=== PATIENT | female | born 1950 | race Caucasian/White ===

== ENCOUNTER → 2018-07-29 11:38 | Outpatient (CLI) | payer OTHER, SELFPAY ==
--- NOTE | 2018-07-29 | DI.MRI.S_ITS ---
PROCEDURE: MR KNEE LT WO CON INDICATIONS: Pain in left knee TECHNIQUE: Noncontrast sagittal PD fast spin echo and T2 fast spin echo with fat saturation, sagittal 3-D FLASH with fat saturation; coronal T1 spin echo and PD fast spin echo with fat saturation, and axial PD fast spin echo with fat saturation through the knee. COMPARISON: None. FINDINGS: Image quality: Excellent. Menisci: Linear oblique high T2 signal intensity traverses the posterior horn medial meniscus, demonstrating inferior articular surface extension, indicating oblique tearing. Linear oblique high T2 signal intensity traverses the posterior horn, body, and anterior horn lateral meniscus, demonstrating inferior articular surface extension, indicating oblique tearing. Cruciate ligaments: The anterior and posterior cruciate ligaments appear intact. Medial structures: The medial collateral ligament appears intact. Visualized portions of the pes anserinus tendons appear normal. No abnormal bursal fluid. Lateral structures: The lateral collateral ligament, long and short heads of the biceps femoris tendon appear intact. The popliteus tendon appears normal. Iliotibial band appears normal. Anterior structures: The quadriceps and patellar tendons appear intact. Patellar alignment is normal. No femoral trochlear dysplasia or ventral trochlear prominence. No edema in the infrapatellar fat pad. Bones and cartilage: No bone marrow contusions or fractures. Mild tricompartmental periarticular osteophyte formation. Moderate diffuse articular cartilage loss overlies the weightbearing aspects of the medial femoral condyle and medial tibial plateau. The moderate articular cartilage loss overlies the patellar apex and medial patellar facet superiorly. Joint space: There is a moderate knee joint effusion. No Lee's cyst. Normal appearing synovial plicae are incidentally noted. IMPRESSION: 1. Medial and lateral meniscal tearing. 2. Medial and patellofemoral compartment articular cartilage loss. 3. Knee joint fusion. Dictated by: Vito Oakley M.D. on 07/29/2018 at 13:51 Approved by: Vito Oakley M.D. on 07/29/2018 at 13:55
== END ==
PROVIDERS: PCP Internal Medicine; Visit Provider Physician Assistant
DX: M25.562 Pain in left knee (principal); S83.242A Other tear of medial meniscus, current injury, left knee, initial encounter; S83.282A Other tear of lateral meniscus, current injury, left knee, initial encounter; M25.462 Effusion, left knee
CPT/HCPCS: 73721

== ENCOUNTER → 2020-08-30 15:17 | Outpatient (CLI) | payer MEDICARE, OTHER, SELFPAY ==
--- NOTE | 2020-09-20 10:59 | PM.CARDMON.1 ---
[employer]oured Car [employer] Report Referral & Results Date Patient Seen: 08/30/20 Requesting provider: Alejandra Alvarenga Indication: Atrial fibrillation Duration of monitoring (days): 7 Diary information: there were no patient events to review Data: minimum heart rate identified was 54 beats per minute at 03:58 on 09/03/2020 Maximum sinus heart rate was 129 beats per minute at 15:55 on 09/04/2020 Maximum overall heart rate was 184 beats per minute at 15:34 on 09/02/2020 during a 5 beat run of SVT Less than 1% of identified beats were ventricular or supraventricular ectopic in origin, which would classify them as rare. There were 9 runs of SVT the longest lasting 15.8 seconds, the fastest being the 5 beat run noted above Impression: 7 day cardiac rehab nurse showing very rare very brief runs of SVT and no other significant dysrhythmias. No episodes of atrial fibrillation identified on this study
== END ==
PROVIDERS: PCP Internal Medicine; Referring Provider Family Medicine; Visit Provider Family Medicine
DX: I48.91 Unspecified atrial fibrillation (principal); R01.1 Cardiac murmur, unspecified
CPT/HCPCS: 93242; 93244

== ENCOUNTER → 2020-09-18 14:03 | Outpatient (CLI) | payer MEDICARE, OTHER, SELFPAY ==
--- NOTE | 2020-09-18 | DI.ECHO.S_ITS ---
[place]---------+ [facility] +---------+ : : [address] : [place] : : : : [id number] : : : : Phone: [phone]---------+ Echocardiogram Report + + :Name: RENO SWARTZ Study Date: 09/18/2020 Height: 65 in : :[facility] ReadingLocation: Weight: 130 lb : : Gender: Female BSA: 1.6 m2 : :: 1950 Age: 70 yrs BP: 130/78 mmHg: :Reason For Study: CARDIAC MURMUR : :Ordering Physician: CHE, : :NATALYA Performed By: Teresa Murillo : :Referring: NATALYA BOLTON : + + Interpretation Summary The left ventricle is normal in size and wall thickness. Left ventricular systolic function appears normal without focal wall motion abnormalities. The ejection fraction is estimated to be 60-65%. Diastolic parameters suggest a pseudonormalization pattern, consistent with probable elevated filling pressures. The right ventricle is normal in size and function. The right ventricular systolic pressure is estimated to be at least 33 mmHg based on an estimated right atrial pressure of 3 mm Hg. The left atrium is severely dilated. The right atrium is mildly dilated. There is mild mitral regurgitation. There is no other significant valvular heart disease. The aortic root is normal size. Procedure: A two-dimensional transthoracic echocardiogram with color flow and Doppler was performed. The study quality was technically adequate. There is no prior echocardiogram noted for this patient. The patient was in sinus rhythm with heart rates between 68-76 bpm during the exam. Left Ventricle: The left ventricle is normal in size and wall thickness. Left ventricular systolic function appears normal without focal wall motion abnormalities. The ejection fraction is estimated to be 60-65%. Diastolic parameters suggest a pseudonormalization pattern, consistent with probable elevated filling pressures. Right Ventricle: The right ventricle is normal in size and function. Atria: The left atrium is severely dilated. The right atrium is mildly dilated. There is no Doppler evidence for an interatrial shunt. Mitral Valve: The mitral valve leaflets appear mildly thickened, but open well. There is mild mitral annular calcification. There is mild mitral regurgitation. Aortic Valve: The aortic valve is trileaflet. The aortic valve opens well. There is no aortic valve stenosis. No aortic regurgitation is present. Tricuspid Valve: The tricuspid valve is normal in structure and function. There is trace tricuspid regurgitation. The right ventricular systolic pressure is estimated to be at least 33 mmHg based on an estimated right atrial pressure of 3 mm Hg. Pulmonic Valve: The pulmonic valve leaflets are thin and pliable; valve motion is normal. There is no pulmonic valvular regurgitation. There is no other significant valvular heart disease. Great Vessels: The aortic root is normal size. The IVC is of normal diameter and collapses greater than 50% with a sniff. This suggests a low right atrial pressure of 3 mm Hg. Pericardium/ Pleura There is no pericardial effusion. There is no pleural effusion. MMode/2D Measurements & Calculations LVIDd: 5.0 cm LVOT diam: 2.0 cm LVIDs: 3.4 cm Ao root diam: 2.7 cm FS: 32.1 % asc Aorta Diam: 3.1 cm EPSS: 0.69 cm Ao Arch Diam (Prox Trans): 3.2 cm IVSd: 0.81 cm LVPWd: 0.76 cm LV allen. diameter/BSA (cm/m^2): 3.0 LV sys. diameter/BSA (cm/m^2): 2.0 LA A2 area: 26.3 cm2 RA long axis: 5.3 cm LA A4 area: 23.4 cm2 RA area: 18.3 cm2 LA length (vol): 5.4 cm RA vol: 53.2 ml LA vol: 97.0 ml RA : 32.3 ml/m2 LA vol index: 58.9 ml/m2 IVC diam: 1.9 cm RVD1 (basal): 3.6 cm TAPSE: 1.9 cm Doppler Measurements & Calculations Ao V2 max: 174.0 cm/sec LVOT Max Quinten: 139.7 cm/sec Ao V2 mean: 113.3 cm/sec LV V1 max P.8 mmHg Ao max P.1 mmHg LV V1 VTI: 29.0 cm Ao mean P.9 mmHg DEA(I,D): 2.5 cm2 Ao V2 VTI: 35.4 cm DEA(V,D): 2.5 cm2 sev ratio: 0.82 DEA indexed to BSA (cm^2/m^2): 1.5 MV E max quinten: 117.1 cm/sec TR max quinten: 273.3 cm/sec MV A max quinten: 112.6 cm/sec TR max P.9 mmHg MV E/A: 1.0 PA V2 max: 120.1 cm/sec Med Peak E' Quinten: 5.7 cm/sec PA V2 mean: 83.4 cm/sec E/E' med: 20.7 PA mean P.1 mmHg Lat Peak E' Quinten: 5.3 cm/sec PA pr(Accel): 3.6 mmHg E/E' lat: 22.1 E/e' average: 21.4 MV dec time: 0.40 sec MVA(VTI): 2.6 cm2 MV V2 mean: 88.1 cm/sec SV(LVOT): 89.4 ml MV mean P.5 mmHg MV V2 VTI: 34.9 cm Reading Physician:06:32 PM
== END ==
PROVIDERS: PCP Family Medicine; Referring Provider Family Medicine; Visit Provider Family Medicine
DX: R01.1 Cardiac murmur, unspecified (principal); I34.0 Nonrheumatic mitral (valve) insufficiency; M85.852 Other specified disorders of bone density and structure, left thigh; Z78.0 Asymptomatic menopausal state; Z82.62 Family history of osteoporosis
CPT/HCPCS: 77080; 93306

== ENCOUNTER → 2021-08-08 08:04 | Outpatient (CLI) | payer MEDICARE, OTHER, SELFPAY ==
--- NOTE | 2021-08-08 | DI.RAD.S_ITS ---
PROCEDURE: FL UPPER GI W AIR INDICATIONS: Dysphagia, unspecified COMPARISON: None. FINDINGS: KUB: Preprocedural gin pole operator film demonstrates a normal bowel gas pattern. No suspicious abdominal calcifications. Visualized solid organ contours appear normal. Bony structures appear unremarkable. Esophagus: Esophageal mucosa is normal on air-contrast views. On single-contrast views, there is essentially normal esophageal peristalsis. However, there are a few spontaneous episodes of tertiary contractions resulting in delayed and retrograde flow of ingested oral contrast . No strictures, extrinsic mass effects, or diverticula. Suggestion of small sliding hiatal hernia on the single contrast images. No episodes of elicited gastroesophageal reflux. There is normal transit of a calibrated barium tablet through the esophagus. Stomach: The stomach is normally distensible, with normal rugal fold thickness. No mucosal masses or ulcers. Pylorus and duodenal bulb appear normal in morphology. Duodenal folds are normal in thickness as well. IMPRESSION: 1. Essentially normal esophageal peristalsis with a few spontaneous episodes of tertiary contractions resulting in delayed/retrograde flow of ingested oral contrast. 2. Otherwise, unremarkable double-contrast upper GI evaluation. Dictated by: Raphael Molina M.D. on 08/08/2021 at 17:29 Approved by: Raphael Molina M.D. on 08/08/2021 at 17:32
== END ==
PROVIDERS: PCP Family Medicine; Referring Provider Family Medicine; Visit Provider Family Medicine
DX: R13.10 Dysphagia, unspecified (principal)
CPT/HCPCS: 74246

== ENCOUNTER → 2022-09-14 08:45 | Outpatient (CLI) | payer MEDICARE, OTHER, SELFPAY ==
--- NOTE | 2022-09-14 08:48 | DI.MRI.S_ITS ---
PROCEDURE: MR KNEE RT WO CON INDICATIONS: Unspecified internal derangement of right knee TECHNIQUE: Noncontrast sagittal PD fast spin echo and T2 fast spin echo with fat saturation, sagittal 3-D FLASH with fat saturation; coronal T1 spin echo and PD fast spin echo with fat saturation, and axial PD fast spin echo with fat saturation through the knee. COMPARISON: [facility] Vernon Rosamond, CR, XR KNEE 4+ VIEWS RIGHT, 06/13/2022, 13:49. FINDINGS: Image quality: Excellent. Menisci: Medial meniscal extrusion. There is complex tear of the body and posterior horn of the medial meniscus. Complex tear is also seen in the body of the lateral meniscus extending to the anterior horn. The meniscal root ligaments appear intact. Cruciate ligaments: The anterior and posterior cruciate ligaments appear intact. Medial structures: The medial collateral ligament appears intact. The semimembranosus tendon insertions and meniscocapsular junction appear intact. Visualized portions of the pes anserinus tendons appear normal. No abnormal bursal fluid. Lateral structures: The lateral collateral ligament, long and short heads of the biceps femoris tendon appear intact. The popliteus tendon appears normal. Iliotibial band appears normal. Anterior structures: The quadriceps and patellar tendons appear intact. There is low-grade quadriceps tendinitis and patellar tendinitis. Patellar alignment is normal. No femoral trochlear dysplasia or ventral trochlear prominence. No edema in the infrapatellar fat pad. Bones and cartilage: No bone marrow contusions or fractures. Severe tricompartmental cartilage loss, most pronounced in the patellofemoral joint and medial femorotibial joint. Joint space: There is moderate knee joint fluid. Trace Lee's cyst. Normal appearing synovial plicae are incidentally noted. IMPRESSION: 1. Medial meniscal tear. 2. Lateral meniscal tear. 3. Mild quadriceps tendinitis and patellar tendinitis. 4. Tricompartmental chondromalacia. 5. Moderate knee joint effusion. Dictated by: Basilio Jalloh M.D. on 09/16/2022 at 7:40 Approved by: Basilio Jalloh M.D. on 09/16/2022 at 9:06
== END ==
PROVIDERS: PCP Family Medicine; Referring Provider Orthopaedic Surgery Foot and Ankle Surgery; Visit Provider Orthopaedic Surgery Foot and Ankle Surgery
DX: S83.231A Complex tear of medial meniscus, current injury, right knee, initial encounter (principal); S83.271A Complex tear of lateral meniscus, current injury, right knee, initial encounter; M76.51 Patellar tendinitis, right knee; M94.261 Chondromalacia, right knee; M23.91 Unspecified internal derangement of right knee; M25.461 Effusion, right knee
CPT/HCPCS: 73721

== ENCOUNTER → 2022-09-30 10:16 | Outpatient (CLI) | payer MEDICARE, OTHER, SELFPAY ==
--- NOTE | 2022-09-30 10:31 | DI.DEXA.S_ITS ---
Bone Density Report Name: RENO SWARTZ Age: 72 Sex: Female Ethnicity: White Date of : 1950 Indication: postmenopausal; screening for osteoporosis; Referring Provider: NATALYA BOLTON MD Study: Bone densitometry was performed. Exam Date: September 30, 2022 Accession number: [id number] Bone Density: Region BMD T-score Z-score Classification AP Spine(L1-L4) 1.008 -0.4 1.9 Normal Femoral Neck (Left) 0.724 -1.1 0.8 Osteopenia Total Hip (Left) 0.874 -0.6 1.1 Normal Femoral Neck (Right) 0.689 -1.4 0.5 Osteopenia Total Hip (Right) 0.838 -0.9 0.8 Normal Total Hip Mean 0.856 -0.8 1.0 Normal World Health Organization criteria for BMD impression classify patients as: Normal (T-score at or above -1.0), Osteopenia (T-score between -1.0 and -2.5), or Osteoporosis (T-score at or below -2.5). 10-year Fracture Risk(1): Major Osteoporotic Fracture 9.9% Hip Fracture 1.6% Reported Risk Factors: [place] (), Neck BMD=0.689, BMI=23.3 (1) FRAX(R) Version 3.08. Fracture probability calculated for an untreated patient. Fracture probability may be lower if the patient has received treatment. Previous Exams: -- Region Exam Age BMD T-score BMD Change BMD Change Date g/cm2 vs Baseline vs Previous -- AP Spine (L1-L4) 09/30/2022 72 1.008 -0.4 -0.019 (-1.9%)# -0.019 (-1.9%)# 09/18/2020 70 1.027 -0.2 Total Hip(Left) 09/30/2022 72 0.874 -0.6 0.015 (1.7%)# 0.015 (1.7%)# 09/18/2020 70 0.859 -0.7 Total Hip(Right) 09/30/2022 72 0.838 -0.9 -0.007 (-0.9%)# -0.007 (-0.9%)# 09/18/2020 70 0.845 -0.8 -- *Denotes significance at 95% confidence level, LSC for AP Spine = 0.022 g/cm2, LSC for Total Hip = 0.027 g/cm2 # Denotes dissimilar scan types or analysis methods Impression: The patient has low bone mass, based on the Right Femoral Neck T-score. The patient has an estimated ten-year risk of hip fracture of 1.6% and an estimated ten-year risk of major fracture of 9.9%, based on the WHO FRAX algorithm. No significant bone loss was observed. Discussion: BONE DENSITY IS LOW AT ONE OR MORE SKELETAL SITES. This patient's lowest T-score is low at one or more skeletal sites. It meets the World Health Organization's (WHO) criteria for ?low bone mass? (T-score between -1.0 and -2.5). The patient's 10-year risk of fracture as calculated by FRAX is less than the threshold where pharmacological therapy is recommended by the National Osteoporosis Foundation (NOF). However, all treatment decisions require clinical judgment and consideration of individual patient factors, including patient preferences, comorbidities, previous drug use, risk factors not captured in the FRAX model (e.g., frailty, falls, vitamin D deficiency, increased bone turnover, interval significant decline in bone density) and possible under or overestimation of fracture risk by FRAX. The patient should follow a healthful lifestyle (good nutrition with adequate calcium and vitamin D, and appropriate weight-bearing exercise). Follow-Up: Consider repeating this study in 2 to 3 years to reassess this patient's status, or sooner if there is some new clinical indication. Reported by: UBALDO LEON MD on 09/30/2022 10:38:00 AM.
== END ==
PROVIDERS: PCP Family Medicine; Referring Provider Family Medicine; Visit Provider Family Medicine
DX: Z78.0 Asymptomatic menopausal state (principal); Z13.820 Encounter for screening for osteoporosis; M85.851 Other specified disorders of bone density and structure, right thigh
CPT/HCPCS: 77080

== ENCOUNTER → 2022-10-23 07:58 | Outpatient (CLI) | payer MEDICARE, OTHER, SELFPAY ==
--- NOTE | 2022-10-23 | DI.ECHO.S_ITS ---
[place] [facility]---------+ [facility] +---------+ : : [address] [place] [address] : : : : [id number] : : : : Phone: [phone]---------+ Echocardiogram Report + + :Name: RENO SWARTZ Study Date: 10/23/2022 Height: 65 in : :[facility] ReadingLocation: Weight: 150 lb : : Gender: Female BSA: 1.8 m2 : :: 1950 Age: 72 yrs BP: 131/84 mmHg: :Reason For Study: MITRAL INSUFFICIENCY : :Ordering Physician: CHE, : :NATALYA Performed By: Teresa Murillo : :Referring: HARPREET SERVIN : + + Interpretation Summary 1) Normal left ventricular thickness, size, wall motion, and systolic function (EF 60-65%). 2) Normal right ventricular size and function. 3) Moderately to severely dilated left atrium. 4) The mitral valve appears rheumatic. The mitral valve mean gradient is 4 mmHg. 5) There is mild mitral regurgitation that is directed posteriorly. 6) Brief run of SVT noted during the study (probably atrial tachycardia). 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 Consider cardiology consultation. Procedure: A two-dimensional transthoracic echocardiogram with color flow and Doppler was performed. The study quality was technically adequate. Comparison is made with the echocardiogram of 09/18/2020. The patient was in sinus rhythm with heart rates between 59-70 bpm during the exam. There was a short run of tachycardia up to 118bpm. Left Ventricle: The left ventricle is normal in size and wall thickness. The ejection fraction is estimated to be 60-65%. Left ventricular systolic function appears normal without focal wall motion abnormalities. Diastolic function could not be accurately assessed due to confounding valvular disease. Right Ventricle: The right ventricle is normal in size and function. Atria: Moderately to severely dilated left atrium. Right atrial size is normal. There is no Doppler evidence for an interatrial shunt. Mitral Valve: The mitral valve leaflets appear mildly thickened, but open well. There is mild mitral annular calcification. The mitral valve appears rheumatic. There is mild mitral stenosis. The mitral valve mean gradient is 4 mmHg. There is mild mitral regurgitation. There is an eccentric jet of mitral regurgitation that is directed posteriorly. Aortic Valve: The aortic valve is trileaflet. The aortic valve opens well. There is no aortic valve stenosis. No aortic regurgitation is present. Tricuspid Valve: The tricuspid valve is normal in structure and function. There is mild tricuspid regurgitation. The right ventricular systolic pressure is estimated to be at least 36 mmHg based on an estimated right atrial pressure of 3 mm Hg. Pulmonic Valve: The pulmonic valve leaflets are thin and pliable; valve motion is normal. There is no pulmonic valvular regurgitation. Great Vessels: The aortic root is normal size. The dimensions of the ascending aorta are normal. The IVC is of normal diameter and collapses greater than 50% with a sniff. This suggests a low right atrial pressure of 3 mm Hg. Pericardium/ Pleura There is no pericardial effusion. There is no pleural effusion. MMode/2D Measurements & Calculations LVIDd: 5.1 cm LVOT diam: 2.0 cm LVIDs: 3.7 cm Ao root diam: 2.8 cm FS: 27.5 % asc Aorta Diam: 3.1 cm EPSS: 0.58 cm Ao Arch Diam (Prox Trans): 2.2 cm IVSd: 0.77 cm LVPWd: 0.87 cm LV allen. diameter/BSA (cm/m^2): 2.9 LV sys. diameter/BSA (cm/m^2): 2.1 LA A2 area: 25.7 cm2 RA long axis: 5.2 cm LA A4 area: 23.8 cm2 RA area: 17.3 cm2 LA length (vol): 5.9 cm RA vol: 48.5 ml LA vol: 87.4 ml RA : 27.7 ml/m2 LA vol index: 49.9 ml/m2 IVC diam: 2.0 cm RVD1 (basal): 3.3 cm RVD2 (mid): 2.6 cm TAPSE: 2.3 cm Doppler Measurements & Calculations Ao V2 max: 186.8 cm/sec LVOT Max Quinten: 90.6 cm/sec Ao V2 mean: 125.4 cm/sec LV V1 max P.3 mmHg Ao max P.0 mmHg LV V1 VTI: 20.8 cm Ao mean P.1 mmHg DEA(I,D): 1.7 cm2 Ao V2 VTI: 38.3 cm DEA(V,D): 1.5 cm2 sev ratio: 0.54 DEA indexed to BSA (cm^2/m^2): 0.95 MV E max quinten: 136.3 cm/sec TR max quinten: 288.3 cm/sec MV A max quinten: 134.5 cm/sec TR max P.3 mmHg MV E/A: 1.0 PA V2 max: 102.9 cm/sec Med Peak E' Quinten: 5.5 cm/sec PA V2 mean: 75.0 cm/sec E/E' med: 24.6 PA mean P.5 mmHg Lat Peak E' Quinten: 7.0 cm/sec PA pr(Accel): 19.1 mmHg E/E' lat: 19.4 E/e' average: 22.0 MV dec time: 0.41 sec MVA(VTI): 1.4 cm2 MV V2 mean: 88.8 cm/sec SV(LVOT): 63.6 ml MV mean P.6 mmHg MV V2 VTI: 45.3 cm Reading Physician:03:28 PM
== END ==
PROVIDERS: PCP Family Medicine; Referring Provider Family Medicine; Visit Provider Family Medicine
DX: I34.0 Nonrheumatic mitral (valve) insufficiency (principal); I48.0 Paroxysmal atrial fibrillation; I51.7 Cardiomegaly; I47.1 Supraventricular tachycardia
CPT/HCPCS: 93306

== ENCOUNTER → 2024-03-15 13:38 | Outpatient (CLI) | payer MEDICARE, OTHER, SELFPAY ==
--- NOTE | 2024-03-15 | DI.ECHO.S_ITS ---
[place] [facility]---------[facility] : : [address] : : [place] : : [id number] : : Phone: [phone] Echocardiogram Report + + :Name: RENO SWARTZ Study Date: 03/15/2024 Height: 65 in : :[facility] ReadingLocation: Weight: 145 lb : : Gender: Female BSA: 1.7 m2 : :: 1950 Age: 73 yrs BP: 121/78 mmHg: :Reason For Study: RHEUMATIC MITRAL VALVE DISEASE : :Ordering Physician: ABIGAIL, : :ALEXI Performed By: Armando Benitez : :Referring: ALEXI MEYERS : + + Interpretation Summary 1) Normal left ventricular thickness, size, wall motion, and systolic function (EF 60-65%). 2) Normal right ventricular size and function. 3) Severely dilated left atrium. 4) The mitral valve appears rheumatic. The mitral valve mean gradient is 3.5mmHg. 5) There is mild mitral regurgitation that is directed posteriorly. 6) Compared to the Echo done 10/23/2022, no significant change. Procedure: A two-dimensional transthoracic echocardiogram with color flow and Doppler was performed. The study quality was technically good. Comparison is made with the echocardiogram of 10/23/2022. The patient was in normal sinus rhythm during the exam. Left Ventricle: The left ventricle is normal in size. There is normal left ventricular wall thickness. There is no ventricular septal defect visualized. The ejection fraction is estimated to be 60-65%. There are no focal wall motion abnormalities. Diastolic function could not be accurately assessed due to confounding valvular disease. Right Ventricle: The right ventricle is normal in size and function. Atria: The left atrium is severely dilated. Right atrial size is normal. There is no Doppler evidence for an atrial septal defect. Mitral Valve: The mitral valve appears rheumatic. The mitral valve leaflets appear mildly thickened, but open well. The mitral valve leaflets are mildly calcified. The mitral valve mean gradient is 3.5 mmHg. There is mild mitral regurgitation. Aortic Valve: The aortic valve is trileaflet. The aortic valve opens well. There is no aortic valve stenosis. No aortic regurgitation is present. Tricuspid Valve: The tricuspid valve is normal in structure and function. There is mild tricuspid regurgitation. The right ventricular systolic pressure is estimated to be at least 38 mmHg based on an estimated right atrial pressure of 3 mm Hg. Pulmonic Valve: The pulmonic valve is normal in structure and function. There is no pulmonic valvular regurgitation. Great Vessels: The aortic root is normal size. The dimensions of the ascending aorta are normal. The pulmonary artery is normal size. The IVC is of normal diameter and collapses greater than 50% with a sniff. This suggests a low right atrial pressure of 3 mm Hg. Pericardium/ Pleura There is no pericardial effusion. There is no pleural effusion. MMode/2D Measurements & Calculations LVIDd: 4.6 cm LVOT diam: 1.9 cm LVIDs: 3.4 cm Ao root diam: 2.8 cm FS: 25.6 % asc Aorta Diam: 3.2 cm EPSS: 0.62 cm Ao Arch Diam (Prox Trans): 2.3 cm IVSd: 0.97 cm LVPWd: 0.81 cm LV allen. diameter/BSA (cm/m^2): 2.7 LV sys. diameter/BSA (cm/m^2): 2.0 LA A2 area: 28.9 cm2 RA long axis: 5.6 cm LA A4 area: 29.3 cm2 RA area: 18.9 cm2 LA length (vol): 6.8 cm RA vol: 54.4 ml LA vol: 105.8 ml RA : 31.5 ml/m2 LA vol index: 61.3 ml/m2 IVC diam: 1.9 cm RVD1 (basal): 3.9 cm RVD2 (mid): 2.3 cm TAPSE: 2.6 cm Doppler Measurements & Calculations Ao V2 max: 220.7 cm/sec LVOT Max Quinten: 135.8 cm/sec Ao V2 mean: 150.7 cm/sec LV V1 max P.4 mmHg Ao max P.5 mmHg LV V1 VTI: 32.8 cm Ao mean P.4 mmHg DEA(I,D): 2.1 cm2 Ao V2 VTI: 46.5 cm DEA(V,D): 1.8 cm2 sev ratio: 0.71 DEA indexed to BSA (cm^2/m^2): 1.2 MV E max quinten: 133.2 cm/sec TR max quinten: 294.5 cm/sec MV A max quinten: 121.1 cm/sec TR max P.7 mmHg MV E/A: 1.1 PA V2 max: 87.4 cm/sec Med Peak E' Quinten: 4.5 cm/sec PA V2 mean: 63.1 cm/sec E/E' med: 29.4 PA mean P.8 mmHg Lat Peak E' Quinten: 6.2 cm/sec PA pr(Accel): 12.2 mmHg E/E' lat: 21.6 E/e' average: 25.5 MV dec time: 0.40 sec MVA(VTI): 2.0 cm2 MV V2 mean: 88.0 cm/sec SV(LVOT): 97.4 ml MV mean P.5 mmHg MV V2 VTI: 49.5 cm Reading Physician:03:36 PM
== END ==
PROVIDERS: PCP Family Medicine; Referring Provider Internal Medicine Cardiovascular Disease; Visit Provider Internal Medicine Cardiovascular Disease
DX: I08.1 Rheumatic disorders of both mitral and tricuspid valves (principal)
CPT/HCPCS: 93306

== ENCOUNTER → 2024-07-12 12:11 | Outpatient (CLI) | payer MEDICARE, OTHER, SELFPAY ==
--- NOTE | 2024-07-12 12:13 | DI.RAD.S_ITS ---
PROCEDURE: XR DEXA AXIAL SKELETON INDICATIONS: ROUTINE COMPARISON: [facility], , XR DEXA AXIAL SKELETON, 09/30/2022, 10:31. FINDINGS: Lumbar Spine: Bone mineral density 1.027 (previously 1.008) g/cm2, T score -0.2 (previously-0.4). Left Femoral Neck: Bone mineral density 0.737 (previously 0.724) g/cm2, T score -1.0 (previously-1.1). Left Hip: Bone mineral density 0.865 (previously 0.874) g/cm2, T score -0.6 (previously-0.6). Fracture Risk Calculation (when applicable): 10-year fracture risk of a major osteoporotic fracture 9.8 percent and of a hip fracture 1.4 percent. IMPRESSION: Normal---recommend repeat DEXA as clinically indicated. Follow-up guidelines as follows: Osteoporosis: Consider a repeat DEXA and Vertebral Fracture Assessment (VFA) exam in 2 years or sooner if medically necessary, to reassess this patient's status. Osteopenia: Consider a repeat DEXA in 2-3 years to reassess this patient's status, or if there is a new clinical indication. Normal: Consider a repeat DEXA in 5 years or sooner, or if there is a new clinical indication. All treatment decisions require clinical judgment and consideration of individual patient factors, including patient preferences, comorbidities, previous drug use, risk factors not captured in the FRAX model (e.g., frailty, falls, vitamin D deficiency, increased bone turnover, interval significant decline in bone density ) and possible under- or over-estimation of fracture risk by FRAX. In addition, the NOF Guide recommends that FDA-approved medical therapies be considered in postmenopausal women and men age >= 50 years with a: * Hip or vertebral (clinical or morphometric) fracture * T-score of <=-2.5 at the spine or hip * Ten-year fracture probability by FRAX of >= 3% for hip fracture or >=20% for major osteoporotic fracture. Dictated by: Yevgeniy Mcgregor M.D. on 07/12/2024 at 20:15 Approved by: Yevgeniy Mcgregor M.D. on 07/12/2024 at 20:17
== END ==
PROVIDERS: PCP Family Medicine; Referring Provider Family Medicine; Visit Provider Family Medicine
DX: M85.89 Other specified disorders of bone density and structure, multiple sites (principal)
CPT/HCPCS: 77080